=== PATIENT | female | born 1950 | race Caucasian/White ===

== ENCOUNTER 2018-07-08 19:21 | Inpatient (IN) | payer OTHER ==
[~2018-07-08] VITALS: Ht 121.9 cm; Wt 62.6 kg
[2018-07-08 19:32] VITALS: BP 121/63
[2018-07-08] MEDS ORDERED: SERTRALINE HCL50 MG PO (19:45)
[2018-07-08 19:49] LABS: ABSOLUTE BASOPHILS 0.1 thou/uL (0.0-0.2); ABSOLUTE LYMPHOCYTES 1.5 thou/uL (0.8-5.3); ABSOLUTE MONOCYTES 0.7 thou/uL (0.0-1.2); ABSOLUTE NEUTROPHILS 5.7 thou/uL (1.6-8.1); BASOPHILS 0.9 %; EOSINOPHILS 0.6 %; HEMATOCRIT 34.4 % (37.0-47.0); HEMOGLOBIN 11.3 gm/dL (12.0-15.0); LYMPHOCYTES 18.5 %; MCH 28.1 pg (26.0-34.0); MCV 85.3 fL (80.0-100.0); MONOCYTES 8.3 %; MPV 9.8 fl. (7.2-11.1); NUCLEATED RBCS 0 /100WBC; PLATELET COUNT* 225 thou/uL (150-400); POLYS 71.7 %; RBC 4.03 mil/uL (4.20-5.00); RDW-CV 14.6 % (10.5-14.5); WBC 7.9 thou/uL (4.0-11.0)
[2018-07-08 19:56] LABS: ANION GAP 7 mmol/L (7-16); BUN 15 mg/dL (7-18); CALCIUM 8.8 mg/dL (8.5-10.1); CHLORIDE 102 mmol/L (98-107); CO2 30 mmol/L (21-32); GLUCOSE 107 mg/dL (70-99); POTASSIUM 4.6 mmol/L (3.5-5.1); SODIUM 139 mmol/L (136-145)
[2018-07-08 20:07] LABS: ALBUMIN 3.2 g/dL (3.4-5.0); ALKALINE PHOSPHATASE 54 U/L (46-116); LIPASE 150 U/L (73-393); MAGNESIUM 1.9 mg/dL (1.8-2.4); NT-PRO BRAIN NAT PEPTIDE 140 pg/mL (<300); SGOT 19 U/L (15-37); SGPT 15 U/L (30-65); TOTAL BILIRUBIN 0.2 mg/dL (<0.1-1.0); TOTAL PROTEIN 7.5 g/dL (6.4-8.2); TROPONIN-I LEVEL <0.06 ng/mL (<0.06)
[2018-07-08 23:00] VITALS: BP 146/45
[2018-07-08 23:09] VITALS: BP 117/77
[2018-07-09 04:35] VITALS: BP 103/49
[2018-07-09 09:00] VITALS: BP 94/46
[2018-07-09 12:00] VITALS: BP 105/61
[2018-07-09 16:00] VITALS: BP 128/65
[2018-07-09 20:00] VITALS: BP 125/66
[2018-07-10] VITALS: BP 108/50
[2018-07-10 04:00] VITALS: BP 120/61
[2018-07-10 08:00] VITALS: BP 122/61
[2018-07-10 09:58] LABS: APTT 31.5 Seconds (25.0-31.3); PROTIME 10.2 Seconds (9.20-11.50)
[2018-07-10] MEDS ORDERED: IPRAT-ALBUT 0.5-3 ML INH (11:41)
[2018-07-10] MEDS ORDERED: PREDNISONE10 MG PO (11:46)
[2018-07-10] MEDS ORDERED: NEBULIZER MISCELL (11:47)
[2018-07-10 12:03] VITALS: BP 122/61
--- NOTE | 2018-07-10 12:33 | EKG ---
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
--- NOTE | 2018-07-11 07:25 | CON ---
[address] [address] CONSULTATION Name: MIGUE BRYSON Room: [address]#: [id number] Admission: 07/08/18 Attend Phys: aGby Buchanan Discharge: 07/10/18 Date of : 48 Report #: [id number] THIS REPORT FOR: //name// CC: Indira Franklin REASON FOR CONSULTATION: Abnormal chest x-ray and CT scan. HISTORY OF PRESENT ILLNESS: This is a 68-year-old female patient who was admitted to this hospital on 07/08/2018 after she presented to the Emergency Room with the complaint. She mentioned that she has shakiness in her hands and she felt heart palpitations and she had been tremulous for 2 days. Also she reported some vague chest discomfort in the upper part of her chest and the neck area, waxing and waning. Also reported history of back pain on and off for 1 week duration. She reported 7-pound weight loss for the last 1 month. She had some cough, which she thinks started just few days ago. She does not think she is short of breath. She smoked for 40 years, quit 5 years ago, but currently she smokes e-cigarettes. Her workup in the ER demonstrated abnormal chest x-ray followed by CT scan that showed lung mass that will be discussed below. REVIEW OF SYSTEMS: A 12-point review of systems reviewed with the patient and negative for fever, chills, nausea, vomiting or abdominal pain. The rest of the review of system was negative. PAST MEDICAL HISTORY: Polio on the right lower extremity with weakness although she ambulates without assistance with a limp. PAST SURGICAL HISTORY: She had multiple surgeries related to her polio. HOME MEDICATIONS: She is ____. ALLERGIES: NAPROXEN. FAMILY HISTORY: Reviewed with the patient. None pertinent to the above chief complaint. SOCIAL HISTORY: She smokes e-cigarettes now, although she smoked for 40 years. Cigarettes quit 5 years ago. She does not carry a diagnosis of COPD. No history of excessive alcohol use. PHYSICAL EXAMINATION: VITAL SIGNS: She was on room air O2 saturation more than 90%, blood pressure 126/61, pulse rate 79, afebrile and breathing 15 times a minute. GENERAL: She is awake, alert, speaks in full sentences, no distress. Some anxiety noted. HEENT: Head normocephalic and atraumatic. Pupils [place] [address] CONSULTATION Name: MIGUE BRYSON [place] Room: [address]#: [id number] Admission: 07/08/18 Attend Phys: Gaby Buchanan Discharge: 07/10/18 Date of : 48 Report #: [id number] Extraocular movements are intact. ORAL CAVITY: Moist mucous membrane. NECK: Supple. Full range of movement. Nontender. HEART: S1, S2. No murmur, no gallop. ABDOMEN: Benign, soft, lax, nontender. EXTREMITIES: Lower extremity, no edema noted. No calf tenderness. Atrophy noted in the right lower extremity. CHEST: On auscultation, diminished air movement with prolonged expiratory phase. No definite wheezes. PSYCHIATRIC: Mood and affect is appropriate. SKIN: Normal for age and race. LABORATORY DATA: Her chest x-ray showed right mid lung infiltrate. CT scan of the chest demonstrated right hilar mass with mediastinal lymphadenopathy and abnormality in the lower cervical spine. Her white blood count is 7.9, hemoglobin 11.3 and platelet 225. Her D-dimer was not elevated. Her BUN of 15 with a creatinine of 1, sodium 139 and potassium 4.6. IMPRESSION: 1. History of smoking. 2. Lung mass concerning for malignancy with possible metastasis. 3. Presumed chronic obstructive pulmonary disease with history of smoking, cough and some shortness of breath. PLAN: At this point, I will treat the patient as chronic obstructive pulmonary disease exacerbation with bronchodilators and steroids. CT scan was reviewed. I am going to ask Interventional Radiology to review the CT scan to see if it is approachable by CT-guided biopsy, awaiting their input. I did discuss with the patient the finding on the CT scan and the concerns for malignancy and she understands. Thank you for the consult. We will follow along with you. <ELECTRONICALLY SIGNED> By: Elisabet Mckeon MD 07/11/18 0725 0833 [id number] Rubio MD /nt
== END 2018-07-10 12:39 | disposition home or self-care (01) | DRG 181 ==
LOC: M.ERS 19:21 → M.2W 21:54 → M.TBA-ER 21:54 → M.2W 22:45
PROVIDERS: Emergency Medicine Emergency Medical Services; Internal Medicine; ADMIT Internal Medicine
DX: C34.2 Malignant neoplasm of middle lobe, bronchus or lung (principal); J44.1 Chronic obstructive pulmonary disease with (acute) exacerbation; Z68.41 Body mass index [BMI] 40.0-44.9, adult; E44.1 Mild protein-calorie malnutrition; F32.9 Major depressive disorder, single episode, unspecified; F17.290 Nicotine dependence, other tobacco product, uncomplicated; E66.01 Morbid (severe) obesity due to excess calories; R59.0 Localized enlarged lymph nodes; R00.0 Tachycardia, unspecified; Z86.12 Personal history of poliomyelitis; Z88.8 Allergy status to other drugs, medicaments and biological substances; Z82.49 Family history of ischemic heart disease and other diseases of the circulatory system; Z83.49 Family history of other endocrine, nutritional and metabolic diseases; Z79.82 Long term (current) use of aspirin; Z79.899 Other long term (current) drug therapy

== ENCOUNTER → 2018-07-15 | Outpatient (CLI) | payer OTHER ==
[~2018-07-15] VITALS: Ht 149.9 cm; Wt 49.9 kg
[2018-07-15] VITALS (10 sets, daily range): BP systolic 91–126; BP diastolic 43–63
[~2018-07-15] MED LIST: IPRAT-ALBUT 0.5-3 ML INH; NEBULIZER MISCELL; PREDNISONE10 MG PO; SERTRALINE HCL50 MG PO
[2018-07-15 11:24] LABS: HEMATOCRIT 35.5 % (37.0-47.0); HEMOGLOBIN 11.7 gm/dL (12.0-15.0); MCH 27.9 pg (26.0-34.0); MCV 84.7 fL (80.0-100.0); MPV 10.6 fl. (7.2-11.1); RBC 4.19 mil/uL (4.20-5.00); RDW-CV 14.7 % (10.5-14.5); WBC 11.1 thou/uL (4.0-11.0)
[2018-07-15 11:32] LABS: CALCIUM 8.9 mg/dL (8.5-10.1); CREATININE 0.8 mg/dL (0.6-1.3); POTASSIUM 3.5 mmol/L (3.5-5.1)
[2018-07-15 11:33] LABS: APTT 26.4 Seconds (25.0-31.3); PROTIME 10.3 Seconds (9.20-11.50)
[2018-07-15 11:37] LABS: ALBUMIN 3.8 g/dL (3.4-5.0); TOTAL BILIRUBIN 0.4 mg/dL (<0.1-1.0); TOTAL PROTEIN 8.1 g/dL (6.4-8.2)
--- NOTE | 2018-07-17 16:07 | PATH ---
[address] [address] PATHOLOGY RPT PROCEDURE Name: HAILEE BRYSON Room: [facility] Laura#: [id number] Admission: 07/15/18 Date of : 48 Discharge: Report #: [id number] Path Case #: [id number] [facility] Accession Number: [id number] . 01 Material submitted: . RIGHT LUNG MASS . 01 Clinical history: . Right lung mass, cancer . 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 SEE COMMENT. . (MADIE:at;07/17/18) QTA/07/17/2018 . 02 Comment: The cores show abundant nests of malignant cells in association with tumor necrosis and desmoplastic stroma without keratinization. A panel of properly controlled immunohistochemical stains performed on A1 highlights the neoplastic cells as follows supporting the diagnosis: . TTF-1: Negative Napsin: Negative P40: Positive . Reviewed with Dr. Kayla Cabrera who agrees with the diagnosis. Dr. Noble notified of preliminary findings at approximately 10:35 on 07/16/2018. . (MADIE:at;07/16/18) . 02 Electronically signed: . Levon Nicholas MD, Pathologist NPI- [id number] . 01 Gross description: . Received in formalin labeled "Hailee Bryson, right lung," are multiple fragments of needle cores of sifuentes soft tissue measuring 1.1 x 0.4 x 0.1 cm in aggregate dimensions. The specimen is filtered and entirely submitted in cassette A1. (TSD; 07/15/2018) TOB/TOB . 02 Pathologist provided ICD-10: C34.91 [place] [address] PATHOLOGY RPT PROCEDURE Name: HAILEE BRYSON Room: [facility]#: [id number] Admission: 07/15/18 Date of : 48 Discharge: Report #: [id number] Path Case #: [id number] . 02 CPT . 021233, [id number], [id number] Specimen Comment: A courtesy copy of this report has been sent to Specimen Comment: [phone], , , . Specimen Comment: Report sent to and Dr. SWANSON,DR NOBLE,DR ZAYAS Performed at: [address], [place], [place] [id number] MD Trenton Goodson MD Phone: [phone] Performed at: [facility] [address]vara, [place], [place] [id number] MD Levon Nicholas MD Phone: [phone]
== END | disposition home or self-care (01) ==
LOC: M.CT 10:09
PROVIDERS: Radiology Diagnostic Radiology
DX: C34.91 Malignant neoplasm of unspecified part of right bronchus or lung (principal); F17.210 Nicotine dependence, cigarettes, uncomplicated; Z98.890 Other specified postprocedural states; Z88.8 Allergy status to other drugs, medicaments and biological substances; Z79.899 Other long term (current) drug therapy